=== PATIENT | male | born 1980 | race African-American/Black ===

== ENCOUNTER 2023-09-23 04:58 | Emergency (ER) | payer MEDICARE, MEDICAID ==
[~2023-09-23] VITALS: Ht 167.6 cm; Wt 69.0 kg
[2023-09-23 05:26] VITALS: BP 138/86; O2SAT 99
[2023-09-23 10:05] VITALS: PULSE 72; RESP 16; TEMP 98.1
== END 2023-09-23 10:06 | disposition home or self-care (01) ==
LOC: ER 05:49
DX: F10.129 Alcohol abuse with intoxication, unspecified (principal); E11.9 Type 2 diabetes mellitus without complications; Y90.9 Presence of alcohol in blood, level not specified
CPT/HCPCS: 99283